=== PATIENT | female | born 1990 | race Caucasian/White ===

== ENCOUNTER 2019-08-20 17:59 | Observation (INO) ==
[2019-08-20] MEDS ORDERED: PROCHLORPERAZINE 1 ML IV ONE ×2 (18:11→21:12)
[2019-08-20] MEDS ORDERED: FAMOTIDINE 20MG IV PUSH 20 MG/5 ML SYR IV STA (18:11)
[2019-08-20] MEDS ORDERED: SODIUM CHLORIDE 0.9% 1000ML 2,000 ML IV SCH (18:15)
--- NOTE | 2019-08-20 18:22 | Emergency Department Note ---
Impression & Plan Acute opioid withdrawal, Syncope, Leukocytosis, Acute dehydration, Fever, Abnormal EKG, Hypokalemia, Ketonuria ED Provider Note NAME: AIMEE [id number] KATILN AGE: 29 SEX: F ARRIVES VIA: Ambulance INFORMANT: Patient, ED PROVIDER(S): Shree Guerra MD CHIEF COMPLAINT: Seizure like activity PLAN: Disposition: Admit MEDICAL DECISION MAKING: The patient is a 29-year-old woman with a past medical history of heroin abuse who presents emergency department from [facility] after having a seizure-like episode when she was in the shower and it was reported that she had spasms of her hands and rigidity in her extremities decreased consciousness but no loss of consciousness given 1 mg of IM Ativan and subsequently transferred to the emergency department. There is no known history of prior seizure history. The patient was being managed for opioid withdrawal with clonidine at the senior care in the setting of being arrested and brought there yesterday. On arrival the patient is sedated after receiving Ativan there is no seizure activity. She follows simple commands. She was incontinent of urine and stool with diarrhea. She did abruptly vomit in the emergency department on arrival. She is afebrile with stable vital signs. Reflexes are within normal limits. There is no clonus. Abdomen is benign. Lungs are clear. Extremities without evidence of infection or abscess. Patient's initial EKG demonstrates significant ST and T wave abnormalities without overt ST elevation. Her QTC is prolonged at 571. Chest x-ray negative for acute process. CT head negative for ICH or acute process otherwise. WBC 19.6K without bandemia likely representing a component of hemoconcentration given H/H 18.0/50.0 which is increased from 13.8/40.5 on June 23, 2019. Platelets within normal limits. Chemistry without metabolic acidosis. BUN 21 consistent with the patient's clinically dry appearance. Potassium 3.2 with repletion provided. Calcium 10.6 also consistent with the patient's clinically dry appearance. LFTs unremarkable. Lipase within normal limits. Troponin negative/undetectable. hCG negative. UA with 3+ ketones again consistent with the patient's clinically dry appearance and evidence of hemoconcentration. No evidence of urinary infection. Drug screen is positive for opiates and marijuana. Otherwise negative for salicylates or acetaminophen. Blood EtOH negative. Given the patient's constellation of symptoms including abdominal cramping and diarrhea with nausea and vomiting, certainly is consistent with opioid withdrawal, with associated dehydration leading to syncopal episode with possible myoclonic component given staff's concern for possible seizure-like activity. Patient did exhibit improvement in her mental status during her ED observation and did answer simple questions and denied any recent antibiotics and reports her diarrhea did begin during this recent period where she was incarcerated. Second and third repeat EKGs showed progressive improvement of ST abnormalities with residual T wave inversions anteriorly. Suspect EKG changes likely related to component of her dehydration and hypoka lemia.. Plan was initially to continue with her IV fluid hydration (2L NSS and 1L LR) and electrolyte repletion to reassess for appropriateness for discharge back to her facility with close monitoring for opioid withdrawal. Subsequently the patient did develop a fever 38.1 and so given the patient's laboratory abnormalities including leukocytosis reasonable to admit for further management for possible sepsis, though thought to be less likely. Suspect Opiod withdrawal most likely precipitating etiology. Blood cultures pending. Vancomycin/Zosyn ordered empirically. There has been report of COVID-19 cases at the patient's facility COVID-19 PCR was ordered. The patient does not have meningismus so will defer lumbar puncture at this time. Case was discussed with Dr. Coffey, [facility] hospitalist, who will evaluate the patient for admission. Triage Nursing notes reviewed and agree them. Additional history obtained from EMS Prior medical records reviewed Vital Signs: reviewed and remarkable for no significant abnormalities Differential diagnosis: Overdose, toxicologic, infection, hypoglycemia, electrolyte abnormalities, cardiac sources, intracerebral event, neurologic, trauma, as well as other pathologies. ER treatment provided: See below. Diagnostics interpreted by me: ECG #1: Normal sinus rhythm with sinus arrhythmia, 85 bpm, ST and T wave abnormality. No ectopy. QTc 571, QRS 86, no overt ST elevation. ECG #2: Normal sinus rhythm, 84 bpm, normal axis, no ectopy, ST and T wave abnormalities less pronounced, QTC improved to 439, QRS 76. ECG #3: Normal sinus rhythm, 80 bpm, no ectopy, further improved ST abnormalities with residual T wave inversions anteriorly, no overt ST elevation. qtc 438, Qrs 78 Cardiac Monitoring: An order for continuous cardiac monitoring was placed and demonstrated Normal sinus rhythm with sinus arrhythmia, 85 bpm, No ectopy. Laboratory studies: See below Imaging studies: XR chest 1V portable CLINICAL HISTORY: syncope dyspnea COMPARISON STUDY: No previous studies for comparison. FINDINGS: The bones soft tissues and hemidiaphragms are normal. The cardiomedia stinal silhouette is normal. The lungs are clear. The pulmonary vasculature is normal. IMPRESSION: Negative chest. -- CT head/brain wo con CT DOSE: 691.05 mGy.cm HISTORY: Mental status change syncope, poss seizure TECHNIQUE: Multiaxial CT images of the head were performed without the use of i ntravenous contrast. A dose lowering technique was utilized adhering to the principles of ALARA. Comparison: None. Findings: The paranasal sinuses and mastoid air cells are clear. The calvarium and skull base are intact. The ventricles and sulci are within normal limits. There is no mass, hematoma, midline shift, or acute infarct. Impression: No acute intracranial abnormality. Consultation(s): Case was discussed with Dr. Coffey, [facility] hospitalist, who will evaluate the patient for admission. HPI: The patient is a 29-year-old woman with a past medical history of heroin abuse who presents emergency department from [facility] after having a seizure-like episode when she was in the shower and it was reported that she had spasms of her hands and rigidity in her extremities decreased consciousness but no loss of consciousness given 1 mg of IM Ativan and subsequently transferred to the emergency department. There is no known history of prior seizure history. The patient was being managed for opioid withdrawal with clonidine at the senior care in the setting of being arrested and brought there yesterday. On arrival the pa tient is sedated after receiving Ativan there is no seizure activity. She follows simple commands. She was incontinent of urine and stool with diarrhea. She did abruptly vomit in the emergency department on arrival. Patient denies any preceding cough congestion, nausea, vomiting or diarrhea prior to her heroin use yesterday and her incarceration. ROS: See above HPI for pertinent positives & negatives. A total of 10 systems reviewed and were otherwise negative. PAST MEDICAL HISTORY:See Below PAST SURGICAL HISTORY:See Below FAMILY HISTORY:See Below SOCIAL HISTORY:See Below HOME MEDICATIONS:See Below ALLERGIES:See Below VITALS:See Below PHYSICAL EXAMINATION: GENERAL: Awake, alert, Drowsy/fatigued-appearing, in no distress HENT: Normocephalic, atraumatic. Oropharynx with dry mucous membranes and otherwise unremarkable. EYES: Normal conjunctiva. Sclera non-icteric. EOMI. No nystamgus. PEARRL. Pupils 2-3mm bilaterally, appropriate for light. NECK: Supple. No nuchal rigidity. FROM. No JVD. RESPIRATORY: Clear to auscultation. CARDIAC: Regular rate, normal rhythm. No murmurs. Extremities warm and well perfused. Pulses equal. ABDOMEN: Soft, non-distended. No tenderness to palpation. No rebound or guarding. No masses. RECTAL: Deferred. MUSCULOSKELETAL: Chest examination reveals no tenderness. The back is symmetrical on inspection without obvious abnormality. There is no CVA tenderness to palpation. No joint edema. LOWER EXTREMITIES: Calves are equal size bilaterally and non-tender. No edema. No discoloration. NEURO: Normal sensorium. No sensory or motor deficits noted. DTRs within normal limits. No clonus. SKIN: No rash or jaundice noted. Extremities are unremarkable with no areas of erythema, induration, or fluctuance to suggest abscess. No splinter hemorrhages or osler nodes noted. ED COURSE: Critical Care: I have personally spent greater than 135 minutes of critical care time in the direct management of this patient. This includes bedside care, interpretation of diagnostic studies, and testing, discussion with consultants, patient, and family members, and other required patient management activities. This 135 minutes is in excess of all separately billable procedures. Shree Guerra MD Past Med/Surg History Medical History (Updated 08/21/19 @ 01:45 by Shree Guerra MD) IV drug abuse Opioid abuse Surgical History No pertinent past surgical history Family History Other No pertinent family history in first degree relatives Social History Preferred Language: Liberian Communication Ability: Effective Buckler And Lacer Required: No Beliefs That Will Affect Care: None Current Living Situation: Other Current Living Situation Comment: [facility] Other Information That Helps Us Care for You: No Feels Safe at Home: Yes Safety Concerns: Feels Safe At This Time Smoking Status: Current every day smoker Tobacco Type: cigarettes ; Do You Dip or Chew Tobacco: No ; Second Hand Exposure: No ; Tobacco Cessation Education Requested by Patient: No Hx Alcohol Use: No Hx Substance Use: Yes substance use type: marijuana and heroin Last Used Substance: Hours (ago) Last Used Substance Other:: 12 hrs ago Allergies Allergies Allergy/AdvReac Type Severity Reaction Status Date / Time No Known Allergies Allergy Verified 08/20/19 18:52 Home Meds Home Medications Medication Instructions Recorded Confirmed bismuth subsalicylate 524 mg PO BID PRN 08/20/19 08/20/19 [Pepto-Bismol] clonazepam 0.5 mg PO BID 08/20/19 08/20/19 clonazepam 0.5 mg PO HS 08/20/19 08/20/19 clonazepam 1 mg PO BID 08/20/19 08/20/19 clonidine HCl 0.1 mg PO TID 08/20/19 08/20/19 ondansetron HCl [Zofran] 4 mg PO TID PRN 08/20/19 08/20/19 gabapentin 300 mg PO TID 08/21/19 08/21/19 mirtazapine 15 mg PO HS 08/21/19 08/21/19 quetiapine 50 mg PO DAILY 08/21/19 08/21/19 Results & Data (ED) Vital Signs Vital Signs - 24 hr 08/20/19 18:11 08/20/19 19:38 08/20/19 21:10 Temperature 36.2 C L Temperature Source Oral Pulse Rate 85 Pulse Rate [Right Finger] 77 77 Pulse Rhythm [Right Finger] Respiratory Rate 10 L 14 14 Respiratory Effort / Characteristics Respiratory Depth Blood Pressure 120/78 Blood Pressure [Left Arm] 106/78 116/78 Blood Pressure Mean 92 Blood Pressure Mean [Left Arm] 87 90 Blood Pressure Position Lying Pulse Oximetry 100 99 96 Oxygen Delivery Method Room Air Sepsis Recent Fever Within 48 Hours No Sepsis New/Unexplained Change in Mental Status No Sepsis Action Taken by Nursing No Action Required 08/20/19 22:34 08/20/19 23:22 08/20/19 23:25 Temperature 38 C H Temperature Source Oral Pulse Rate Pulse Rate [Right Finger] 75 88 73 Pulse Rhythm [Right Finger] Regular Respiratory Rate 22 14 18 Respiratory Effort / Characteristics Non-Labored Spontaneous Non-Labored Respiratory Depth Normal Normal Blood Pressure Blood Pressure [Left Arm] 99/66 L 147/85 H 120/71 Blood Pressure Mean Blood Pressure Mean [Left Arm] 77 105 87 Blood Pressure Position Pulse Oximetry 96 98 100 Oxygen Delivery Method Room Air Room Air Sepsis Recent Fever Within 48 Hours Sepsis New/Unexplained Change in Mental Status Sepsis Action Taken by Nursing Laboratory Data Attestation: I reviewed the patient's lab results. Result diagrams: 08/21/19 08:20 08/21/19 08:20 Lab Results 08/20/19 08/20/19 08/20/19 Range/Units 18:46 18:46 18:46 WBC (4.8-10.8) K/uL RBC (4.2-5.4) M/uL Hgb (12.0-16.0) g/dL Hct (37-47) % MCV (80-100) fL MCH (25-34) pg MCHC (32-36) g/dL RDW Std Deviation (36.4-46.3) fL RDW Coeff of Pati (11.5-14.5) % Plt Count (130-400) K/uL MPV (7.4-10.4) fL Immature Gran % (Auto) % Neut % (Auto) % Lymph % (Auto) % Owen % (Auto) % Eos % (Auto) % Baso % (Auto) % Immature Gran # (Auto) (0.00-0.02) K/uL Neut # (Auto) (1.4-6.5) K/uL Lymph # (Auto) (1.2-3.4) K/uL Owen # (Auto) (0.11-0.59) K/uL Eos # (Auto) (0-0.5) K/uL Baso # (Auto) (0-0.2) K/uL PT 11.5 (9.0-12.0) Seconds INR 1.1 (0.9-1.1) Sodium 138 (136-145) mmol/L Potassium 3.2 L (3.5-5.1) mmol/L Chloride 101 (98-107) mmol/L Carbon Dioxide 25 (21-32) mmol/L Anion Gap 12.0 H (3-11) BUN 21 H (7-18) mg/dl Creatinine 1.14 (0.6-1.2) mg/dl Est Cr Clr Drug Dosing 66.7 ml/min Est GFR ( Amer) 76.3 Est GFR (Non-Af Amer) 65.8 BUN/Creatinine Ratio 18.2 (10-20) Glucose 126 H (70-99) mg/dl Lactate (0.4-2.0) mmol/L Calcium 10.6 H (8.5-10.1) mg/dl Phosphorus (2.5-4.9) mg/dl Magnesium 2.3 (1.8-2.4) mg/dl Total Bilirubin 0.8 (0.2-1) mg/dl AST 20 (15-37) U/L ALT 26 (12-78) U/L Alkaline Phosphatase 100 (45-117) U/L Troponin I (0-0.045) ng/ml Total Protein 9.8 H (6.4-8.2) gm/dl Albumin 5.0 (3.4-5.0) gm/dl Globulin 4.8 H (2.5-4.0) gm/dl Albumin/Globulin Ratio 1.0 (0.9-2) Lipase 213 (73-393) U/L HCG, Qual (Negative) Urine Color Urine Appearance (Clear) Urine pH (4.5-7.5) Ur Specific [place] (1.000-1.030) Urine Protein (Negative) Urine Glucose (UA) (Negative) Urine Ketones (Negative) Urine Blood (Negative) Urine Nitrite (Negative) Urine Bilirubin (Negative) Urine Urobilinogen (Negative) Ur Leukocyte Esterase (Negative) Urine WBC (Auto) (0-5) /hpf Urine RBC (Auto) (0-4) /hpf U Hyaline Cast (Auto) (0-5) /lpf U Epithel Cells (Auto) (0-5) /lpf Urine Bacteria (Auto) (Negative) Salicylates < 1.7 L (2.8-20) mg/dl Urine Opiates Screen (Neg) Ur Methadone, Qual (Neg) Acetaminophen < 2 L (10-30) ug/ml Urine Barbiturates (Neg) Ur Phencyclidine (PCP) (Neg) U Amphetamin/Meth Scrn (Neg) MDMA (Ecstasy) Screen (Neg) U Benzodiazepines Scrn (Neg) Ur Cocaine Metabolite (Neg) U Marijuana (THC) Screen (Neg) Ethyl Alcohol mg/dL (0-3) mg/dl COVID-19 PCR (Negative) Influenza Type A (PCR) (Neg) Influenza Type B (PCR) (Neg) SARS-CoV-2 RNA (RT-PCR) 08/20/19 08/20/19 08/20/19 Range/Units 18:46 18:46 18:46 WBC 19.69 H (4.8-10.8) K/uL RBC 5.79 H (4.2-5.4) M/uL Hgb 18.0 H (12.0-16.0) g/dL Hct 50.0 H (37-47) % MCV 86.4 (80-100) fL MCH 31.1 (25-34) pg MCHC 36.0 (32-36) g/dL RDW Std Deviation 40.5 (36.4-46.3) fL RDW Coeff of Pati 12.8 (11.5-14.5) % Plt Count 368 (130-400) K/uL MPV 11.0 H (7.4-10.4) fL Immature Gran % (Auto) 0.2 % Neut % (Auto) 89.4 % Lymph % (Auto) 6.7 % Owen % (Auto) 3.6 % Eos % (Auto) 0.0 % Baso % (Auto) 0.1 % Immature Gran # (Auto) 0.04 H (0.00-0.02) K/uL Neut # (Auto) 17.61 H (1.4-6.5) K/uL Lymph # (Auto) 1.32 (1.2-3.4) K/uL Owen # (Auto) 0.70 H (0.11-0.59) K/uL Eos # (Auto) 0.00 (0-0.5) K/uL Baso # (Auto) 0.02 (0-0.2) K/uL PT (9.0-12.0) Seconds INR (0.9-1.1) Sodium (136-145) mmol/L Potassium (3.5-5.1) mmol/L Chloride (98-107) mmol/L Carbon Dioxide (21-32) mmol/L Anion Gap (3-11) BUN (7-18) mg/dl Creatinine (0.6-1.2) mg/dl Est Cr Clr Drug Dosing ml/min Est GFR ( Amer) Est GFR (Non-Af Amer) BUN/Creatinine Ratio (10-20) Glucose (70-99) mg/dl Lactate (0.4-2.0) mmol/L Calcium (8.5-10.1) mg/dl Phosphorus (2.5-4.9) mg/dl Magnesium (1.8-2.4) mg/dl Total Bilirubin (0.2-1) mg/dl AST (15-37) U/L ALT (12-78) U/L Alkaline Phosphatase (45-117) U/L Troponin I (0-0.045) ng/ml Total Protein (6.4-8.2) gm/dl Albumin (3.4-5.0) gm/dl Globulin (2.5-4.0) gm/dl Albumin/Globulin Ratio (0.9-2) Lipase (73-393) U/L HCG, Qual Negative (Negative) Urine Color Urine Appearance (Clear) Urine pH (4.5-7.5) Ur Specific [place] (1.000-1.030) Urine Protein (Negative) Urine Glucose (UA) (Negative) Urine Ketones (Negative) Urine Blood (Negative) Urine Nitrite (Negative) Urine Bilirubin (Negative) Urine Urobilinogen (Negative) Ur Leukocyte Esterase (Negative) Urine WBC (Auto) (0-5) /hpf Urine RBC (Auto) (0-4) /hpf U Hyaline Cast (Auto) (0-5) /lpf U Epithel Cells (Auto) (0-5) /lpf Urine Bacteria (Auto) (Negative) Salicylates (2.8-20) mg/dl Urine Opiates Screen (Neg) Ur Methadone, Qual (Neg) Acetaminophen (10-30) ug/ml Urine Barbiturates (Neg) Ur Phencyclidine (PCP) (Neg) U Amphetamin/Meth Scrn (Neg) MDMA (Ecstasy) Screen (Neg) U Benzodiazepines Scrn (Neg) Ur Cocaine Metabolite (Neg) U Marijuana (THC) Screen (Neg) Ethyl Alcohol mg/dL < 3.0 (0-3) mg/dl COVID-19 PCR (Negative) Influenza Type A (PCR) (Neg) Influenza Type B (PCR) (Neg) SARS-CoV-2 RNA (RT-PCR) 08/20/19 08/20/19 08/20/19 Range/Units 18:46 21:59 21:59 WBC (4.8-10.8) K/uL RBC (4.2-5.4) M/uL Hgb (12.0-16.0) g/dL Hct (37-47) % MCV (80-100) fL MCH (25-34) pg MCHC (32-36) g/dL RDW Std Deviation (36.4-46.3) fL RDW Coeff of Pati (11.5-14.5) % Plt Count (130-400) K/uL MPV (7.4-10.4) fL Immature Gran % (Auto) % Neut % (Auto) % Lymph % (Auto) % Owen % (Auto) % Eos % (Auto) % Baso % (Auto) % Immature Gran # (Auto) (0.00-0.02) K/uL Neut # (Auto) (1.4-6.5) K/uL Lymph # (Auto) (1.2-3.4) K/uL Owen # (Auto) (0.11-0.59) K/uL Eos # (Auto) (0-0.5) K/uL Baso # (Auto) (0-0.2) K/uL PT (9.0-12.0) Seconds INR (0.9-1.1) Sodium (136-145) mmol/L Potassium (3.5-5.1) mmol/L Chloride (98-107) mmol/L Carbon Dioxide (21-32) mmol/L Anion Gap (3-11) BUN (7-18) mg/dl Creatinine (0.6-1.2) mg/dl Est Cr Clr Drug Dosing ml/min Est GFR ( Amer) Est GFR (Non-Af Amer) BUN/Creatinine Ratio (10-20) Glucose (70-99) mg/dl Lactate (0.4-2.0) mmol/L Calcium (8.5-10.1) mg/dl Phosphorus 3.9 (2.5-4.9) mg/dl Magnesium (1.8-2.4) mg/dl Total Bilirubin (0.2-1) mg/dl AST (15-37) U/L ALT (12-78) U/L Alkaline Phosphatase (45-117) U/L Troponin I (0-0.045) ng/ml Total Protein (6.4-8.2) gm/dl Albumin (3.4-5.0) gm/dl Globulin (2.5-4.0) gm/dl Albumin/Globulin Ratio (0.9-2) Lipase (73-393) U/L HCG, Qual (Negative) Urine Color Dark Yellow Urine Appearance Clear (Clear) Urine pH 7.0 (4.5-7.5) Ur Specific [place] 1.031 H (1.000-1.030) Urine Protein Trace H (Negative) Urine Glucose (UA) Negative (Negative) Urine Ketones 3+ H (Negative) Urine Blood Negative (Negative) Urine Nitrite Negative (Negative) Urine Bilirubin Negative (Negative) Urine Urobilinogen Negative (Negative) Ur Leukocyte Esterase Trace H (Negative) Urine WBC (Auto) 1-5 (0-5) /hpf Urine RBC (Auto) 0-4 (0-4) /hpf U Hyaline Cast (Auto) 1-5 (0-5) /lpf U Epithel Cells (Auto) 5-10 H (0-5) /lpf Urine Bacteria (Auto) Negative (Negative) Salicylates (2.8-20) mg/dl Urine Opiates Screen Pos H (Neg) Ur Methadone, Qual Neg (Neg) Acetaminophen (10-30) ug/ml Urine Barbiturates Neg (Neg) Ur Phencyclidine (PCP) Neg (Neg) U Amphetamin/Meth Scrn Neg (Neg) MDMA (Ecstasy) Screen Neg (Neg) U Benzodiazepines Scrn Neg (Neg) Ur Cocaine Metabolite Neg (Neg) U Marijuana (THC) Screen Pos H (Neg) Ethyl Alcohol mg/dL (0-3) mg/dl COVID-19 PCR (Negative) Influenza Type A (PCR) (Neg) Influenza Type B (PCR) (Neg) SARS-CoV-2 RNA (RT-PCR) 08/20/19 08/20/19 08/20/19 Range/Units 22:49 23:00 23:35 WBC (4.8-10.8) K/uL RBC (4.2-5.4) M/uL Hgb (12.0-16.0) g/dL Hct (37-47) % MCV (80-100) fL MCH (25-34) pg MCHC (32-36) g/dL RDW Std Deviation (36.4-46.3) fL RDW Coeff of Pati (11.5-14.5) % Plt Count (130-400) K/uL MPV (7.4-10.4) fL Immature Gran % (Auto) % Neut % (Auto) % Lymph % (Auto) % Owen % (Auto) % Eos % (Auto) % Baso % (Auto) % Immature Gran # (Auto) (0.00-0.02) K/uL Neut # (Auto) (1.4-6.5) K/uL Lymph # (Auto) (1.2-3.4) K/uL Owen # (Auto) (0.11-0.59) K/uL Eos # (Auto) (0-0.5) K/uL Baso # (Auto) (0-0.2) K/uL PT (9.0-12.0) Seconds INR (0.9-1.1) Sodium (136-145) mmol/L Potassium (3.5-5.1) mmol/L Chloride (98-107) mmol/L Carbon Dioxide (21-32) mmol/L Anion Gap (3-11) BUN (7-18) mg/dl Creatinine (0.6-1.2) mg/dl Est Cr Clr Drug Dosing ml/min Est GFR ( Amer) Est GFR (Non-Af Amer) BUN/Creatinine Ratio (10-20) Glucose (70-99) mg/dl Lactate 2.0 (0.4-2.0) mmol/L Calcium (8.5-10.1) mg/dl Phosphorus (2.5-4.9) mg/dl Magnesium (1.8-2.4) mg/dl Total Bilirubin (0.2-1) mg/dl AST (15-37) U/L ALT (12-78) U/L Alkaline Phosphatase (45-117) U/L Troponin I < 0.015 (0-0.045) ng/ml Total Protein (6.4-8.2) gm/dl Albumin (3.4-5.0) gm/dl Globulin (2.5-4.0) gm/dl Albumin/Globulin Ratio (0.9-2) Lipase (73-393) U/L HCG, Qual (Negative) Urine Color Urine Appearance (Clear) Urine pH (4.5-7.5) Ur Specific [place] (1.000-1.030) Urine Protein (Negative) Urine Glucose (UA) (Negative) Urine Ketones (Negative) Urine Blood (Negative) Urine Nitrite (Negative) Urine Bilirubin (Negative) Urine Urobilinogen (Negative) Ur Leukocyte Esterase (Negative) Urine WBC (Auto) (0-5) /hpf Urine RBC (Auto) (0-4) /hpf U Hyaline Cast (Auto) (0-5) /lpf U Epithel Cells (Auto) (0-5) /lpf Urine Bacteria (Auto) (Negative) Salicylates (2.8-20) mg/dl Urine Opiates Screen (Neg) Ur Methadone, Qual (Neg) Acetaminophen (10-30) ug/ml Urine Barbiturates (Neg) Ur Phencyclidine (PCP) (Neg) U Amphetamin/Meth Scrn (Neg) MDMA (Ecstasy) Screen (Neg) U Benzodiazepines Scrn (Neg) Ur Cocaine Metabolite (Neg) U Marijuana (THC) Screen (Neg) Ethyl Alcohol mg/dL (0-3) mg/dl COVID-19 PCR (Negative) Influenza Type A (PCR) Neg for Influ A (Neg) Influenza Type B (PCR) Neg for Influ B (Neg) SARS-CoV-2 RNA (RT-PCR) 08/20/19 08/20/19 Range/Units 23:35 23:50 WBC (4.8-10.8) K/uL RBC (4.2-5.4) M/uL Hgb (12.0-16.0) g/dL Hct (37-47) % MCV (80-100) fL MCH (25-34) pg MCHC (32-36) g/dL RDW Std Deviation (36.4-46.3) fL RDW Coeff of Pati (11.5-14.5) % Plt Count (130-400) K/uL MPV (7.4-10.4) fL Immature Gran % (Auto) % Neut % (Auto) % Lymph % (Auto) % Owen % (Auto) % Eos % (Auto) % Baso % (Auto) % Immature Gran # (Auto) (0.00-0.02) K/uL Neut # (Auto) (1.4-6.5) K/uL Lymph # (Auto) (1.2-3.4) K/uL Owen # (Auto) (0.11-0.59) K/uL Eos # (Auto) (0-0.5) K/uL Baso # (Auto) (0-0.2) K/uL PT (9.0-12.0) Seconds INR (0.9-1.1) Sodium (136-145) mmol/L Potassium (3.5-5.1) mmol/L Chloride (98-107) mmol/L Carbon Dioxide (21-32) mmol/L Anion Gap (3-11) BUN (7-18) mg/dl Creatinine (0.6-1.2) mg/dl Est Cr Clr Drug Dosing ml/min Est GFR ( Amer) Est GFR (Non-Af Amer) BUN/Creatinine Ratio (10-20) Glucose (70-99) mg/dl Lactate (0.4-2.0) mmol/L Calcium (8.5-10.1) mg/dl Phosphorus (2.5-4.9) mg/dl Magnesium (1.8-2.4) mg/dl Total Bilirubin (0.2-1) mg/dl AST (15-37) U/L ALT (12-78) U/L Alkaline Phosphatase (45-117) U/L Troponin I (0-0.045) ng/ml Total Protein (6.4-8.2) gm/dl Albumin (3.4-5.0) gm/dl Globulin (2.5-4.0) gm/dl Albumin/Globulin Ratio (0.9-2) Lipase (73-393) U/L HCG, Qual (Negative) Urine Color Urine Appearance (Clear) Urine pH (4.5-7.5) Ur Specific [place] (1.000-1.030) Urine Protein (Negative) Urine Glucose (UA) (Negative) Urine Ketones (Negative) Urine Blood (Negative) Urine Nitrite (Negative) Urine Bilirubin (Negative) Urine Urobilinogen (Negative) Ur Leukocyte Esterase (Negative) Urine WBC (Auto) (0-5) /hpf Urine RBC (Auto) (0-4) /hpf U Hyaline Cast (Auto) (0-5) /lpf U Epithel Cells (Auto) (0-5) /lpf Urine Bacteria (Auto) (Negative) Salicylates (2.8-20) mg/dl Urine Opiates Screen (Neg) Ur Methadone, Qual (Neg) Acetaminophen (10-30) ug/ml Urine Barbiturates (Neg) Ur Phencyclidine (PCP) (Neg) U Amphetamin/Meth Scrn (Neg) MDMA (Ecstasy) Screen (Neg) U Benzodiazepines Scrn (Neg) Ur Cocaine Metabolite (Neg) U Marijuana (THC) Screen (Neg) Ethyl Alcohol mg/dL (0-3) mg/dl COVID-19 PCR NEGATIVE (Negative) Influenza Type A (PCR) (Neg) Influenza Type B (PCR) (Neg) SARS-CoV-2 RNA (RT-PCR) Cancelled Administered Medications Gabapentin (Neurontin) 100 mg PO TID [facility] Stop: 09/20/19 08:59 Last Admin: 08/21/19 14:37 Dose: 100 mg Documented by: [id number] Admin: 08/21/19 08:37 Dose: 100 mg Documented by: [id number] Lorazepam (Ativan) 1 mg in 2 mls @ 2 mls/min IV Q4H PRN PRN Reason: Anxiety/Agitation Stop: 09/20/19 03:12 Last Admin: 08/21/19 08:17 Dose: 2 mls/min Documented by: [id number] Admin: 08/21/19 03:54 Dose: 2 mls/min Documented by: [id number] Potassium Chloride/Sodium Chloride (Normal Saline W/20 Meq Kcl) 20 meq in 1,000 mls @ 125 mls/hr IV .Q8H [facility] Stop: 09/20/19 09:29 Last Admin: 08/21/19 10:01 Dose: 125 mls/hr Documented by: [id number] Piperacillin Sod/Tazobactam (Sod 3.375 gm/ Dextrose) 115 mls @ 28.75 mls/hr IV Q8H [facility]; Protocol Stop: 08/23/19 11:59 Last Admin: 08/21/19 12:03 Dose: 28.8 mls/hr Documented by: [id number] Discontinued Medications Clonazepam (Klonopin) 1 mg PO BID [facility] Stop: 09/20/19 08:59 Last Admin: 08/21/19 08:18 Dose: 1 mg Documented by: [id number] Clonidine HCl (Catapres) 0.1 mg PO TID [place] Stop: 09/20/19 08:59 Last Admin: 08/21/19 08:37 Dose: 0.1 mg Documented by: [id number] Gabapentin (Neurontin) 100 mg PO NOW STA Stop: 08/21/19 02:00 Last Admin: 08/21/19 04:58 Dose: 100 mg Documented by: [id number] Sodium Chloride (Nss 1000ml) 2,000 mls @ 999 mls/hr IV .Q2H1M [place] Stop: 08/20/19 20:15 Last Infusion: 08/21/19 00:03 Dose: 0 mls/hr Documented by: [id number] Admin: 08/20/19 18:39 Dose: 999 mls/hr Documented by: [id number] Prochlorperazine (Compazine) 1 mls @ 1 mls/min IV ONE ONE Stop: 08/20/19 18:12 Last Admin: 08/20/19 19:02 Dose: 1 mls/min Documented by: [id number] Famotidine (Pepcid 20mg Iv Push) 20 mg in 5 mls @ 2.5 mls/min IV NOW STA Stop: 08/20/19 18:12 Last Admin: 08/20/19 19:02 Dose: 2.5 mls/min Documented by: [id number] Lactated Ringer's (Lr) 1,000 mls @ 999 mls/hr IV .Q1H1M ONE Stop: 08/20/19 20:35 Last Infusion: 08/20/19 21:11 Dose: 0 mls/hr Documented by: [id number] Admin: 08/20/19 19:49 Dose: 999 mls/hr Documented by: [id number] Potassium Chloride (K Michael / Wtr) 10 meq in 100 mls @ 100 mls/hr IV Q1H [place] Stop: 08/20/19 21:44 Last Infusion: 08/20/19 22:24 Dose: 0 mls/hr Documented by: [id number] Admin: 08/20/19 21:00 Dose: 100 mls/hr Documented by: [id number] Infusion: 08/20/19 20:49 Dose: 100 mls/hr Documented by: [id number] Admin: 08/20/19 19:49 Dose: 100 mls/hr Documented by: [id number] Prochlorperazine (Compazine) 1 mls @ 1 mls/min IV ONE ONE Stop: 08/20/19 21:13 Last Admin: 08/20/19 21:30 Dose: 1 mls/min Documented by: [id number] Piperacillin Sod/Tazobactam Sod (Zosyn) 4.5 gm in 120 mls @ 240 mls/hr IV NOW ONE Stop: 08/21/19 00:19 Last Infusion: 08/21/19 01:23 Dose: 0 mls/hr Documented by: [id number] Admin: 08/21/19 00:53 Dose: 240 mls/hr Documented by: [id number] Vancomycin HCl 1,250 mg/ (Sodium Chloride) 525 mls @ 200 mls/hr IV NOW ONE Stop: 08/21/19 02:27 Last Infusion: 08/21/19 06:45 Dose: 0 mls/hr Documented by: [id number] Admin: 08/21/19 00:53 Dose: 200 mls/hr Documented by: [id number] Acetaminophen (Ofirmev) 1,000 mg in 100 mls @ 400 mls/hr IV NOW STA Stop: 08/21/19 00:31 Last Infusion: 08/21/19 01:23 Dose: 0 mls/hr Documented by: [id number] Admin: 08/21/19 00:53 Dose: 400 mls/hr Documented by: [id number] Promethazine HCl (Phenergan) 25 mg in 51 mls @ 204 mls/hr IV NOW STA Stop: 08/21/19 00:31 Last Infusion: 08/21/19 01:22 Dose: 0 mls/hr Documented by: [id number] Admin: 08/21/19 00:53 Dose: 204 mls/hr Documented by: [id number] Sodium Chloride (Nss 1000ml) 1,000 mls @ 125 mls/hr IV .Q8H [place] Stop: 09/20/19 03:12 Last Infusion: 08/21/19 10:02 Dose: 0 mls/hr Documented by: [id number] Admin: 08/21/19 03:54 Dose: 125 mls/hr Documented by: [id number] Piperacillin Sod/Tazobactam (Sod 3.375 gm/ Dextrose) 115 mls @ 28.75 mls/hr IV Q8H [place]; Protocol Stop: 08/23/19 05:59 Last Infusion: 08/21/19 08:57 Dose: 0 mls/hr Documented by: [id number] Admin: 08/21/19 04:57 Dose: 28.8 mls/hr Documented by: [id number] Promethazine HCl 12.5 mg/ (Sodium Chloride) 50.5 mls @ 202 mls/hr IV Q6H PRN PRN Reason: Nausea And Vomiting Stop: 09/20/19 05:17 Last Infusion: 08/21/19 05:45 Dose: 0 mls/hr Documented by: [id number] Admin: 08/21/19 05:30 Dose: 202 mls/hr Documented by: [id number] Ondansetron HCl 6 mg/ Dextrose 53 mls @ 200 mls/hr IV ONE STA Stop: 08/21/19 09:36 Last Infusion: 08/21/19 10:17 Dose: 0 mls/hr Documented by: [id number] Admin: 08/21/19 10:01 Dose: 200 mls/hr Documented by: [id number] Multivitamins 10 ml/ Thiamine HCl 100 mg/ Folic Acid 1 mg/Sodium Chloride 1,011.2 mls @ 500 mls/hr IV .Q2H2M ONE Stop: 08/21/19 14:01 Last Admin: 08/21/19 12:29 Dose: 500 mls/hr Documented by: [id number] Potassium Chloride (Klor-Con M20) 40 meq PO NOW STA Stop: 08/20/19 20:59 Last Admin: 08/21/19 01:22 Dose: 40 meq Documented by: [id number] Potassium Chloride (Klor-Con M10) Confirm Administered Dose 40 meq PO .STK-MED ONE Stop: 08/21/19 01:11 Last Admin: 08/21/19 04:02 Dose: Not Given Documented by: [id number] Potassium Chloride (Klor-Con M20) 40 meq PO NOW STA Stop: 08/21/19 09:25 Last Admin: 08/21/19 10:01 Dose: 40 meq Documented by: [id number] Blood Pressure Blood Pressure Findings: Normal blood pressure Discharge Plan Visit Data *Final* Discharge Date/Time: 08/21/19 02:33 Chief Complaint: Seizure Stated Complaint: SEIZURE ED Provider: Shree Guerra Discharge Problem: Acute opioid withdrawal, Syncope, Leukocytosis, Acute dehydration, Fever, Abnormal EKG, Hypokalemia, Ketonuria Patient Disposition: Admitted As Inpatient Discharge Instructions Interventions: ED Discharge Assessment Last Done: 08/21/19 02:33 Discharge Problem: Syncope Qualifiers: Syncope type: unspecified Qualified Code(s): R55 - Syncope and collapse Leukocytosis Qualifiers: Leukocytosis type: unspecified Qualified Code(s): D72.829 - Elevated white blood cell count, unspecified Fever Qualifiers: Fever type: unspecified Qualified Code(s): R50.9 - Fever, unspecified
[2019-08-20 19:11] LABS: Basophils # (auto) 0.02 K/uL (0-0.2); Basophils % (auto) 0.1 %; Immature Granulocytes # (auto) 0.04 K/uL (0.00-0.02); Immature Granulocytes % (auto) 0.2 %; Lymphocytes # (auto) 1.32 K/uL (1.2-3.4); Lymphocytes % (auto) 6.7 %; Mean Corpuscular Hemoglobin 31.1 pg (25-34); Mean Corpuscular Volume 86.4 fL (80-100); Monocytes % (auto) 3.6 %; Neutrophils # (auto) 17.61 K/uL (1.4-6.5); Neutrophils % (auto) 89.4 %; Platelet Count 368 K/uL (130-400); RDW Coefficient of Variation 12.8 % (11.5-14.5); RDW Standard Deviation 40.5 fL (36.4-46.3); Red Blood Count 5.79 M/uL (4.2-5.4); White Blood Count 19.69 K/uL (4.8-10.8)
--- NOTE | 2019-08-20 19:16 | XRay Report ---
XR chest 1V portable CLINICAL HISTORY: syncope dyspnea COMPARISON STUDY: No previous studies for comparison. FINDINGS: The bones soft tissues and hemidiaphragms are normal. The cardiomediastinal silhouette is n ormal. The lungs are clear. The pulmonary vasculature is normal. IMPRESSION: Negative chest. ACT 112: Negative or not required by law. The above report was generated using voice recognition software. It may contain grammatical, syntax or spelling errors. Electronically signed by: Eze Preciado M.D. 08/20/2019 7:15 PM
[2019-08-20 19:21] LABS: INR 1.1 (0.9-1.1); Prothrombin Time 11.5 Seconds (9.0-12.0)
[2019-08-20 19:25] LABS: Pregnancy Test, Serum Negative (Negative)
[2019-08-20 19:28] LABS: BUN Creatinine Ratio 18.2 (10-20); Calcium 10.6 mg/dl (8.5-10.1); Creatinine Clr Calc Pharmacy 66.7 ml/min; Est GFR (African American) 76.3; Est GFR (Non-African American) 65.8; Magnesium 2.3 mg/dl (1.8-2.4); Potassium 3.2 mmol/L (3.5-5.1)
--- NOTE | 2019-08-20 19:29 | CT Scan Report ---
CT head/brain wo con CT DOSE: 691.05 mGy.cm HISTORY: Mental status change syncope, poss seizure TECHNIQUE: Multiaxial CT images of the head were performed without the use of intravenous contrast. A dose lowering technique was utilized adhering to the principles of ALARA. Comparison: None. Findings: The paranasal sinuses and mastoid air cells are clear. The calvarium and skull base are int act. The ventricles and sulci are within normal limits. There is no mass, hematoma, midline shift, or acute infarct. Impression: No acute intracranial abnormality. ACT 112: Negative or not required by law. The above report was generated using voice recognition software. It may contain grammatical, syntax or spelling errors. Electronically signed by: Eze Preciado M.D. 08/20/2019 7:28 PM
[2019-08-20 19:31] LABS: Bilirubin,Total 0.8 mg/dl (0.2-1); Globulin 4.8 gm/dl (2.5-4.0); Total Protein 9.8 gm/dl (6.4-8.2)
[2019-08-20] MEDS ORDERED: LACTATED RINGER'S 1,000 ML IV ONE (19:35)
[2019-08-20 19:43] LABS: Acetaminophen < 2 ug/ml (10-30); Salicylate < 1.7 mg/dl (2.8-20)
[2019-08-20] MEDS: POTASSIUM CHLORIDE / WTR 10 MEQ/100 ML PLCT IV SCH ×2 (19:49→21:00)
[2019-08-20] MEDS ORDERED: POTASSIUM CHLORIDE 20 MEQ TABCR PO STA (20:58)
[2019-08-20 22:06] LABS: Appearance Urine Clear (Clear); Bacteria Urine Automated Negative (Negative); Blood Urine Negative (Negative); Color Urine Dark Yellow; Glucose Urine UA Negative (Negative); Ketones Urine 3+ (Negative); Leukocyte Esterase Urine Trace (Negative); Nitrite Urine Negative (Negative); Protein Urine Trace (Negative); RBC Urine Automated 0-4 /hpf (0-4); Specific Gravity Urine 1.031 (1.000-1.030); Urobilinogen Urine Negative (Negative)
[2019-08-20 22:07] LABS: Bilirubin Urine Negative (Negative); Ictotest Urine Negative (Negative)
[2019-08-20 22:27] LABS: Amphetamines+Metham, Urine Neg (Neg); Barbiturates, Urine Neg (Neg); Benzodiazepine, Urine Neg (Neg); Cocaine, Urine Neg (Neg); MDMA (Ecstacy), Urine Neg (Neg); Methadone, Urine Neg (Neg); Opiate, Urine Pos (Neg); Phencyclidine, Urine Neg (Neg)
[2019-08-20] MEDS ORDERED: VANCOMYCIN CONSULT ACTIVE PRN (23:50)
[2019-08-20] MEDS ORDERED: PIPERACILLIN/TAZOBACTAM 4.5 GM/120 ML BAG IV ONE (23:50)
[2019-08-20] MEDS ORDERED: VANCOMYCIN HCL 1,250 MG in SODIUM CHLORIDE 0.9% 500 ML IV ONE (23:50)
[2019-08-20] MEDS ORDERED: PIPERACILL/TAZOBAC CONSULT ACTIVE PRN (23:50)
[2019-08-21] MEDS ORDERED: ACETAMINOPHEN 1,000 MG/100 ML VIAL IV STA (00:17)
[2019-08-21] MEDS ORDERED: PROMETHAZINE 25 MG/51 ML BAG IV STA (00:17)
[2019-08-21 00:41] LABS: Influenza A virus by PCR Neg for Influ A (Neg); Influenza B virus by PCR Neg for Influ B (Neg)
[2019-08-21] MEDS ORDERED: POTASSIUM CHLORIDE 10 MEQ TABCR PO ONE (01:10)
[2019-08-21] MEDS ORDERED: GABAPENTIN 100 MG CAP PO STA (01:59)
[2019-08-21] MEDS ORDERED: NITROGLYCERIN SL 0.4 MG/TAB TAB SL PRN (03:13)
[2019-08-21] MEDS ORDERED: ACETAMINOPHEN 325 MG TAB PO PRN ×2 (03:13→11:28)
[2019-08-21] MEDS ORDERED: SODIUM CHLORIDE 0.9% 1000ML 1,000 ML IV SCH (03:13)
[2019-08-21] MEDS: LORazepam 1 MG/2 ML VIAL IV PRN ×4 (03:54→22:25)
--- NOTE | 2019-08-21 05:15 | History and Physical Report ---
DATE OF ADMISSION: 08/21/2019 CHIEF COMPLAINT: Questionable seizures, heroin withdrawal, fever. HISTORY OF PRESENT ILLNESS: This is a 29-year-old female with no significant past medical history, who [facility] because of questionable seizure-like activity. The [facility] was [facility] and since 08/20/2019 morning she has been sick with, abdominal cramps, nausea, vomiting, several episodes of diarrhea. No history of seizure. As per the ER, when she was in shower she reported that she had spasms and rigidity in her extremities, somewhat decreased consciousness, but no loss of consciousness and 1 mg of IM Ativan was given and subsequently transferred to the Emergency Department. The patient has been managed in the [facility] opioid withdrawal with clonidine. CT head was negative. Here her labs showed leukocytosis of 19 and hemoglobin of 18, which looks like hemoconcentrated from dehydration with potassium of 3.2. Lactate was 2. Urinalysis was positive for trace leukocyte esterase and +3 ketones, possibly dehydration and starvation ketosis. Urine toxicology screen was positive for opiates and marijuana. Chest x-ray was okay. EKG shows prolonged QT of 571 [address] ST-T wave abnormalities. Initial plan was to treat with fluids and send her back to [facility] for [facility] withdrawal, but then later the patient spiked temperature and as the [facility] has few cases of COVID, flu and COVID test was drawn in the ER, but those tests are still pending and there is question of infection and was started on Zosyn and vancomycin and planned to be admitted in the hospital for further monitoring . The patient is somewhat drowsy, but obeys simple commands and answers questions. She is in position. Complains of abdominal cramps and also several episodes of diarrhea. She says she is not feeling good. Denies any cough, no chest pain. Says that she is somewhat short of breath, has some headache. When asked about neck pain, she says she has some neck pain, but she is able to move her neck, though she is drowsy and is somewhat difficult to evaluate at this time, but no obvious meningeal signs noted. She says she was taking IV heroin every day since last 1-1/2 months until [facility] She says she lives alone. Denies any sick contacts. Denies any travel to [facility]. She says she is not feeling good since yesterday. Currently hemodynamically stable, saturating 100% on room air. The patient states she takes Seroquel 100 mg and gabapentin 100 mg t.i.d. and requests for her home medications. ALLERGIES: No known drug allergies. PAST MEDICAL HISTORY: None. PAST SURGICAL HISTORY: None. MEDICATIONS: Gabapentin and Seroquel. FAMILY HISTORY: Significant for grandfather had diabetes, grandmother has cervical cancer. SOCIAL HISTORY: She states she smokes 1/2 pack a day since last 1 year. Denies any alcohol use. Doing IV heroin since last 1-1/2 months. Lives alone. REVIEW OF SYSTEMS: As per HPI. Rest of the review of systems negative. PHYSICAL EXAMINATION: GENERAL: The patient is of moderate built, currently drowsy, not in acute distress. VITAL SIGNS: Temperature 38, pulse 73, respiratory rate 18, blood pressure 120/71, oxygen 100% on room air. HEENT: No pallor, no icterus. Pupils equal, round, and reactive to light. NECK: No JVD, no neck masses. Seems supple. Unable to flex her neck. CARDIOVASCULAR: S1, S2 heard, regular rate and rhythm, no murmur, no gallop. RESPIRATORY SYSTEM: Normal AP diameter. No accessory muscle use. No wheezing or crackles. ABDOMEN: Soft, bowel sounds present. Abdominal discomfort present. No rigidity. No distention. CENTRAL NERVOUS SYSTEM: Drowsy, but alert. Can tell her name, can tell her date of , knows she is in the hospital, knows the year. Moves extremities. Speech is clear. EXTREMITIES: No edema, no erythema. LABORATORY DATA: WBC 19, hemoglobin 18, hematocrit 50, platelets 368. PTT 11.5, INR 1.1. Sodium 138, potassium 3.2, chloride 101, bicarbonate 25, BUN 21, creatinine 1.1, serum glucose 126. Lactate 2, calcium 10.6, phosphorus 3.9, magnesium 2.3, total bilirubin 0.8, AST 20, ALT 26, alkaline phosphatase 100. Troponin I less than 0.015. Urinalysis, +3 ketones, trace leukocyte esterase. Toxicology screen, salicylates less than 1.7, opiate is positive, acetaminophen less than 2 mcg, marijuana positive. Influenza A and B negative. Sars-CoV-2 pending. IMAGING DATA: Chest x-ray, negative chest. CT of the head, no acute intracranial abnormality. EKG: Initial EKG, normal sinus rhythm with sinus arrhythmia at rate of 55. ST-T abnormality, anterolateral ischemia, prolonged QT of 571. Repeat EKG, QT is shortened. Normal sinus rhythm at a rate of 54. ASSESSMENT AND PLAN: This is a 29-year-old female who was [facility] because of question of seizures, and heroin withdrawal and spiked temp in ER. 1. Heroin withdrawal. The patient was [facility] yesterday night. Say she is taking IV heroin for the last 1-1/2 months. She was treated for heroin withdrawal with clonidine at [facility]. Since 08/20/2019 morning, she is sick with nausea, vomiting, diarrhea, and abdominal discomfort, cramping, not feeling good and shortness of breath and she was feeling rigid and decreased consciousness while she was showering and given IM Ativan and brought to ER.. Here, she is drowsy probably from the Ativan and imaging studies were okay. Labs showed elevated white count and elevated hematocrit and hemoglobin. Urine was positive for +3 ketones. Lactate was normal. Thought to be from dehydration and calcium was 10.6, also thought to be from dehydration. Plan was to give IV fluids and discharge back, but then she spiked temperature and the question of considering for COVID as though the patient went to [facility] yesterday itself, there are some few cases of COVID in the [facility]. Flu was checked and it was negative. COVID is pending. Also because of elevated white count, possible dehydration versus infection because of IV drug abuse. We have started her on IV vancomycin and Zosyn, and getting admitted for further monitoring. We will continue with vancomycin and Zosyn. Meningitis unlikely , but if any concern we will do an LP. Follow the culture. C. diff was also drawn in the ER because of diarrhea, which we will follow the results. Most likely her symptoms could be from the heroin withdrawal. We will continue the protocol with clonidine 0.1 t.i.d. and p.r.n., Klonopin and IV Ativan p.r.n. and monitor the QTs. Can use Imodium for diarrhea if C. Diff is negative and if QT is not prolonged. IV fluids. Continue the antibiotics until the cultures are back. 2. Deep venous thrombosis prophylaxis, sequential compression devices. DISPOSITION: Closely monitor in tele floor. Contact precautions, air-borne precautions until the COVID test is back. DISPOSITION: Monitor in the tele floor. Level 1 full code. MTDD
[2019-08-21] MEDS ORDERED: PROMETHAZINE HCL 12.5 MG in SODIUM CHLORIDE 0.9% 50 ML IV PRN (05:18)
[2019-08-21] MEDS ORDERED: PIPERACILLIN/TAZOBACTAM 3.375 GM in DEXTROSE 5% 100 ML IV SCH (06:00)
--- NOTE | 2019-08-21 08:21 | XRay Report ---
KUB HISTORY: Acute generalized abdominal pain with diarrhea opiod withdrawal, abd pain, diarrhea COMPARISON: CT abdomen pelvis 10/28/2012 FINDINGS: No definite bowel obstruction. Air-filled loops of large and small bowel are noted with mil d small bowel distention within the abdominal left upper quadrant measuring up to 3.9 cm. There is no organomegaly. No renal calculi. No ureteral calculi. No pneumoperitoneum or pneumatosis. No fractur e. IMPRESSION: 1. No bowel obstruction or pneumoperitoneum. 2. A single loop of small bowel within the abdominal left upper quadrant is mildly dilated. This may be physiologic or reflect a mild focal ileus. ACT 112: Negative or not required by law. The above report was generated using voice recognition software. It may contain grammatical, syntax o r spelling errors. Electronically signed by: Russel Chen M.D. 08/21/2019 8:19 AM
[2019-08-21 08:35] LABS: Basophils # (auto) 0.01 K/uL (0-0.2); Basophils % (auto) 0.1 %; Hematocrit (blood only) 41.8 % (37-47); Hemoglobin 14.5 g/dL (12.0-16.0); Immature Granulocytes # (auto) 0.03 K/uL (0.00-0.02); Immature Granulocytes % (auto) 0.2 %; Lymphocytes # (auto) 1.86 K/uL (1.2-3.4); Lymphocytes % (auto) 14.5 %; Mean Corpuscular Hemoglobin 30.3 pg (25-34); Mean Corpuscular Hgb Conc 34.7 g/dL (32-36); Mean Corpuscular Volume 87.4 fL (80-100); Mean Platelet Volume 10.4 fL (7.4-10.4); Monocytes # (auto) 0.82 K/uL (0.11-0.59); Monocytes % (auto) 6.4 %; Neutrophils % (auto) 78.8 %; Platelet Count 321 K/uL (130-400); RDW Coefficient of Variation 12.7 % (11.5-14.5); RDW Standard Deviation 41.3 fL (36.4-46.3); Red Blood Count 4.78 M/uL (4.2-5.4); White Blood Count 12.82 K/uL (4.8-10.8)
[2019-08-21] MEDS: GABAPENTIN 100 MG CAP PO SCH ×3 (08:37→21:10)
[2019-08-21] MEDS ORDERED: cloNIDine HCL 0.1 MG TAB PO SCH (09:00)
[2019-08-21] MEDS ORDERED: clonazePAM 1 MG TAB PO SCH (09:00)
[2019-08-21 09:06] LABS: Est GFR (African American) 102.9; Est GFR (Non-African American) 88.8; Potassium 3.1 mmol/L (3.5-5.1)
[2019-08-21 09:07] LABS: BUN Creatinine Ratio 20.2 (10-20); Calcium 8.8 mg/dl (8.5-10.1); Creatinine Clr Calc Pharmacy 75.1 ml/min
--- NOTE | 2019-08-21 09:07 | Hospitalist Progress Note ---
Date of Service August 21, 2019 Assessment & Plan Admission and Anticipated Discharge Date Admission Date: August 21, 2019 Subjective ATTENDING NOTE : pt [facility] with concern for heroine withdrawal coVID 19 test ordered as pt spiked temp in ER , there are several COVID 19 positive cases in the same facility spoke with [facility] lab rapid in house /[facility] testing for SARS-CoV -2 PCR testing is ordered , test result should be available with in a hour cont standard Isolation precaution till COVID 19 testing report is available no evidence of pnemonia in chest xray , afebrile leukocytosis improved with IV hydration will DC Abx -vanco and Zosyn cont IV fluid and supportive care Judith Garcia MD Results & Data Results & Data ([facility]) Vital Signs (Past 12 Hours) Vital Signs Temp Pulse Pulse Pulse Resp BP BP 08/21/19 08:14 37.4 C 69 16 122/69 08/21/19 02:50 37.6 C H 84 18 107/70 08/21/19 02:33 78 14 107/65 08/21/19 02:03 95 H 16 119/63 08/20/19 23:25 38 C H 73 18 120/71 08/20/19 23:22 88 14 147/85 H 08/20/19 22:34 75 22 99/66 L 08/20/19 21:10 77 14 116/78 Pulse Ox 08/21/19 08:14 97 08/21/19 02:50 97 08/21/19 02:33 98 08/21/19 02:03 94 08/20/19 23:25 100 08/20/19 23:22 98 08/20/19 22:34 96 08/20/19 21:10 96
[2019-08-21] MEDS ORDERED: ondansetron HCL 6 MG in DEXTROSE 5% 50 ML IV STA (09:21)
[2019-08-21] MEDS ORDERED: POTASSIUM CHLORIDE 20 MEQ TABCR PO STA (09:24)
[2019-08-21] MEDS ORDERED: NSS + 20MEQ KCL 20 MEQ/1,000 ML BAG IV SCH (09:30)
--- NOTE | 2019-08-21 10:26 | Hospitalist Progress Note ---
Date of Service August 21, 2019 Assessment & Plan Admission and Anticipated Discharge Date Admission Date: August 21, 2019 Subjective rapid inhouse COVID -19 PCR negative contact /isolation precaution discontinued Judith Garcia MD Results & Data Results & Data ([facility]) Vital Signs (Past 12 Hours) Vital Signs Temp Pulse Pulse Pulse Resp BP BP 08/21/19 08:14 37.4 C 69 16 122/69 08/21/19 02:50 37.6 C H 84 18 107/70 08/21/19 02:33 78 14 107/65 08/21/19 02:03 95 H 16 119/63 08/20/19 23:25 38 C H 73 18 120/71 08/20/19 23:22 88 14 147/85 H 08/20/19 22:34 75 22 99/66 L Pulse Ox 08/21/19 08:14 97 08/21/19 02:50 97 08/21/19 02:33 98 08/21/19 02:03 94 08/20/19 23:25 100 08/20/19 23:22 98 08/20/19 22:34 96
[2019-08-21] MEDS ORDERED: PIPERACILL/TAZOBAC CONSULT ACTIVE PRN (11:30)
[2019-08-21] MEDS ORDERED: LORazepam 1 MG TAB PO PRN (11:32)
--- NOTE | 2019-08-21 11:48 | Hospitalist Progress Note ---
Date of Service August 21, 2019 Assessment & Plan (1) IV drug abuse: Drug Overdose -Patient presented to Emergency room on 08/20/2019 with what appears to be drug overdose and drug misuse side effects Initially with elevated body temperature of 100.4 F but acute symptoms appeared to be related to drug overdose rather than an underlying infection although acute bacterial infection cannot be ruled out at this time Symptoms noted between 08/20/2019 to 08/21/2019 were bradycardia on telemetry initi ally in the high 40s to low 50s and gradually trending upwards to the 60s and 70s Nurse also noted that patient has bowel incontinence -On my 08/21/2019 exam and history gathering directly from the patient that she was initially at home prior to hospitalization and was shooting up dope with Fentanyl with IV and that she was overusing Xanax. She then reports that her parole office found drug drug paraphernalia which led to her arrest. Before leaving the premises of her house, she was given permission to take her usual day time dose of Seroquel (100 mg) and gabapentin (which is at home as 300 mg TID). Patient reports that her other home medication is Remeron (mirtazapine) and reports this dose as 15 mg but she did not take this on time of her arrest. Subsequent patiently had nausea and abdominal symptoms. Then as per Emergency room that patient "presents to emergency department from [facility] half-way after having a seizure-like episode when she was in the shower and it was reported that she had spasms of her hands and rigidity in her extremities" -continue IV fluids with potassium supplementation -continue clonidine with plans to taper as this was used before to try to prevent opioid withdrawal -gabapentin will continue as lower than home dose 100 mg TID -place on alcohol withdrawal protocol so there are active benzodiazepine orders in case there is withdrawal symptoms -give banana bag on 08/21/2019 -encourage oral intake, IV anti-emetics as needed for nausea -likely that bowel movement incontinence will resolve over time. likewise will expect that any myoclonic movements should not recur once central nervous system is no longer affected by effects of IV drugs/Fentanyl or excessive benzodiazepines (2) Leukocytosis: Low grade fever present on admission (100.4 F) Dehydration -leukocytosis of 19,000 on admission. trended down to 12,000 as of 08/21/2019. likely due to dehydration. -COVID 19 is ruled out with negative test. Influenza test is negative -less likely that leukocytosis is from an acute bacterial infection and elevated body temperature could have been effects of drug overdose. But since patient uses IV drugs, will continue empiric antibiotics of Zosyn and await blood cultures. admission UA with no bacteria Mood disorder -continue home dose seroquel 50 mg daily and Remeron (mirtazapine) 5 mg qhs DVT prophylaxis: SCDs Admission and Anticipated Discharge Date Admission Date: August 21, 2019 Subjective Patient presented to Emergency room on 08/20/2019 with what appears to be drug overdose and drug misuse side effects Initially with elevated body temperature of 100.4 but acute symptoms appeared to be related to drug overdose rather than an underlying infection although acute bacterial infection cannot be ruled out at this time Symptoms noted between 08/20/2019 to 08/21/2019 were bradycardia on telemetry initially in the high 40s to low 50s and gradually trending upwards to the 60s and 70s Nurse also noted that patient has bowel incontinence -On my 08/21/2019 exam and history gathering directly from the patient that she was initially at home prior to hospitalization and was shooting up dope with Fentanyl with IV and that she was overusing Xanax. She then reports that her parole office found drug drug paraphernalia which led to her arrest. Before leaving the premises of her house, she was given permission to take her usual day time dose of Seroquel (100 mg) and gabapentin (which is at home as 300 mg TID). Patient reports that her other home medication is Remeron (mirtazapine) and reports this dose as 15 mg but she did not take this on time of her arrest. Subsequent patiently had nausea and abdominal symptoms. Then as per Emergency room that patient "presents to emergency department from [facility] after having a seizure-like episode when she was in the shower and it was repo rted that she had spasms of her hands and rigidity in her extremities" On exam. patient awake and alert and cooperative. she appears to have full control of her body movements and no spasms. She did have brief mild fluttering of her eyelids but generally normal eye movements. she is speaking in full sentences on cooperative but appears tired. she reports still some abdomen discomfort but no acute distress. breathing on room air. no tachycardia. no chest pain. no palpitations Review of Systems Review of Systems: All systems reviewed & are unremarkable except as noted in Subjective Physical Exam Constitutional: cooperative Eyes: PERRL, conjunctivae normal, anicteric sclerae EOM intact bilaterally ENMT: external ear and nose normal, oropharynx normal Neck: normal visual inspection Respiratory: normal respiratory effort Cardiovascular: Rate/Rhythm: regular rhythm and + bradycardic Gastrointestinal (Abdomen): Inspection/Auscultation: normal bowel sounds Musculoskeletal: Head/Neck/Chest: normocephalic Neurologic: PERRL, EOMI, accommodation nl, no face palsy, no dysarthria Results & Data Results & Data ([facility]) Vital Signs (Past 12 Hours) Vital Signs Temp Pulse Pulse Pulse Resp BP BP 08/21/19 11:40 37.4 C 63 16 123/81 08/21/19 08:19 70 08/21/19 08:14 37.4 C 69 16 122/69 08/21/19 02:50 37.6 C H 84 18 107/70 08/21/19 02:33 78 14 107/65 08/21/19 02:03 95 H 16 119/63 Pulse Ox 08/21/19 11:40 97 08/21/19 08:19 08/21/19 08:14 97 08/21/19 02:50 97 08/21/19 02:33 98 08/21/19 02:03 94 (1) Leukocytosis Leukocytosis type: unspecified Qualified Code(s): D72.829 - Elevated white blood cell count, unspecified
[2019-08-21] MEDS ORDERED: MULTI-VITAMIN INFUSION 10 ML, THIAMINE HCL 100 MG, FOLIC ACID 1 MG in SODIUM CHLORIDE 0... IV ONE (12:00)
[2019-08-21] MEDS: PIPERACILLIN/TAZOBACTAM 3.375 GM in DEXTROSE 5% 100 ML IV SCH ×2 (12:03→21:09)
--- NOTE | 2019-08-21 14:59 | Electrocardiogram Report ---
Test Reason : Blood Pressure : / mmHG Vent. Rate : 085 BPM Atrial Rate : 085 BPM P-R Int : 122 ms QRS Dur : 086 ms QT Int : 480 ms P-R-T Axes : 074 073 069 degrees QTc Int : 571 ms Poor data quality, interpretation may be adversely affected Normal sinus rhythm with sinus arrhythmia Possible Left atrial enlargement T wave abnormality, consider inferior ischemia Prolonged QT Abnormal ECG No previous ECGs available Confirmed by Benson Santillan ([id number]) on 08/21/2019 2:59:33 PM Referred By: [facility] Confirmed By:Benson Santillan
--- NOTE | 2019-08-21 15:04 | Electrocardiogram Report ---
Test Reason : Blood Pressure : / mmHG Vent. Rate : 084 BPM Atrial Rate : 084 BPM P-R Int : 134 ms QRS Dur : 076 ms QT Int : 372 ms P-R-T Axes : 074 072 060 degrees QTc Int : 439 ms Normal sinus rhythm Abnormal ECG When compared with ECG of 20-AUG-2019 18:36, (unconfirmed) Nonspecific T wave abnormality has replaced inverted T waves in Lateral leads QT has shortened Confirmed by Benson Santillan ([id number]) on 08/21/2019 3:04:01 PM Referred By: [facility] Confirmed By:Benson Santillan
--- NOTE | 2019-08-21 15:09 | Electrocardiogram Report ---
Test Reason : Blood Pressure : / mmHG Vent. Rate : 080 BPM Atrial Rate : 080 BPM P-R Int : 132 ms QRS Dur : 078 ms QT Int : 380 ms P-R-T Axes : 060 052 064 degrees QTc Int : 438 ms Normal sinus rhythm T wave abnormality, consider anterior ischemia Abnormal ECG When compared with ECG of 20-AUG-2019 21:37, (unconfirmed) Nonspecific T wave abnormality, improved in Inferior leads Confirmed by Benson Santillan ([id number]) on 08/21/2019 3:09:05 PM Referred By: [facility] Confirmed By:Benson Santillan
[2019-08-21] MEDS: SODIUM CHLORIDE 0.9% 1000ML 1,000 ML IV SCH (16:27)
[2019-08-21] MEDS ORDERED: clonazePAM 0.5 MG TAB PO SCH (21:00)
[2019-08-21] MEDS ORDERED: MIRTAZAPINE TAB 15 MG TAB PO SCH (21:00)
[2019-08-21] MEDS: cloNIDine HCL 0.1 MG TAB PO SCH (21:10)
[2019-08-21] MEDS: ONDANSETRON INJ 2 MG/ML 2 ML VIAL IV PRN (21:15)
[2019-08-22] MEDS: ONDANSETRON INJ 2 MG/ML 2 ML VIAL IV PRN (03:15)
[2019-08-22] MEDS: PIPERACILLIN/TAZOBACTAM 3.375 GM in DEXTROSE 5% 100 ML IV SCH ×2 (03:16→13:07)
[2019-08-22] MEDS: LORazepam 1 MG/2 ML VIAL IV PRN ×3 (03:16→13:07)
[2019-08-22] MEDS: SODIUM CHLORIDE 0.9% 1000ML 1,000 ML IV SCH (03:32)
[2019-08-22] MEDS ORDERED: clonazePAM 0.25 MG TAB PO STA ×3 (03:55→16:04)
[2019-08-22] MEDS ORDERED: clonazePAM 0.5 MG TAB PO STA (04:21)
[2019-08-22] MEDS: GABAPENTIN 100 MG CAP PO SCH ×2 (07:55→13:11)
[2019-08-22] MEDS: cloNIDine HCL 0.1 MG TAB PO SCH (07:55)
[2019-08-22 08:49] LABS: Hematocrit (blood only) 38.2 % (37-47); Hemoglobin 13.2 g/dL (12.0-16.0); Mean Corpuscular Hemoglobin 30.6 pg (25-34); Mean Corpuscular Hgb Conc 34.6 g/dL (32-36); Mean Corpuscular Volume 88.6 fL (80-100); Mean Platelet Volume 10.1 fL (7.4-10.4); Platelet Count 247 K/uL (130-400); RDW Coefficient of Variation 12.7 % (11.5-14.5); RDW Standard Deviation 40.8 fL (36.4-46.3); Red Blood Count 4.31 M/uL (4.2-5.4); White Blood Count 11.05 K/uL (4.8-10.8)
[2019-08-22] MEDS ORDERED: clonazePAM 0.25 MG TAB PO ONE (08:56)
--- NOTE | 2019-08-22 09:21 | Hospitalist Progress Note ---
Date of Service August 22, 2019 Assessment & Plan (1) IV drug abuse: Drug Overdose -Patient presented to Emergency room on 08/20/2019 with what appears to be drug overdose and drug misuse side effects Initially with elevated body temperature of 100.4 F but acute symptoms appeared to be related to drug overdose rather than an underlying infection although acute bacterial infection cannot be ruled out at this time Symptoms noted between 08/20/2019 to 08/21/2019 were bradycardia on telemetry initi ally in the high 40s to low 50s and gradually trending upwards to the 60s and 70s Nurse also noted that patient has bowel incontinence -On my 08/21/2019 exam and history gathering directly from the patient that she was initially at home prior to hospitalization and was shooting up dope with Fentanyl with IV and that she was overusing Xanax. She then reports that her parole office found drug drug paraphernalia which led to her arrest. Before leaving the premises of her house, she was given permission to take her usual day time dose of Seroquel (100 mg) and gabapentin (which is at home as 300 mg TID). Patient reports that her other home medication is Remeron (mirtazapine) and reports this dose as 15 mg but she did not take this on time of her arrest. Subsequent patiently had nausea and abdominal symptoms. Then as per Emergency room that patient "presents to emergency department from [facility] long-term after having a seizure-like episode when she was in the shower and it was reported that she had spasms of her hands and rigidity in her extremities" -was placed on alcohol withdrawal protocol so there are active benzodiazepine orders in case there is withdrawal symptoms -given banana bag on 08/21/2019 -continue clonidine with plans to taper as this was used before to try to prevent opioid withdrawal -gabapentin continued as lower than home dose 100 mg TID -encourage oral intake, IV anti-emetics as needed for nausea -will expect that any myoclonic movements should not recur once central nervous system is no longer affected by effects of IV drugs/Fentanyl or excessive benzodiazepines, monitor when GI symptoms improves after more time from initial overdoses from home -08/22/2019 exam: Patient seen and examined at bedside. She is laying on the bed and a bucket near her in case she vomits. She reports she has been able to eat some food but not always keeping it down. she reports she continues to have bowel movement incontinence. no chest pain. no shortness of breath. no headache. Patient afebrile. Patient's nurse and correctional officers did not report of patient having any unusual body spams. Telemetry generally in the 50s -Patient encouraged to participate with PT/OT despite continued malaise and GI symptoms Hypokalemia -serum potassium 3.1 on 08/21/2019, potassium supplements was given, check lab and replete as needed to targe serum potassium between 3.5 to 4 Bradycardia -unclear of patient's cardiac heart rates as outpatient, patient does have bradycardia which could be a transient situation from drug use at home, or perhaps this is patient's baseline as a young adult (2) Leukocytosis: Low grade fever present on admission (100.4 F) Dehydration -leukocytosis of 19,000 on admission. trended down to 12,000 as of 08/21/2019. leukocytosis likely due to dehydration. -COVID 19 is ruled out with negative test. Influenza test is negative -less likely that leukocytosis is from an acute bacterial infection and elevated body temperature could have been effects of drug overdose. But since patient uses IV drugs, will continue empiric antibiotics of Zosyn and await blood cultures. admission UA with no bacteria -WBC downtrending to 11,000 on 08/22/2019. blood culture no growth to date so far. continue Zosyn for now. Mood disorder -continue home dose seroquel 50 mg daily and Remeron (mirtazapine) 5 mg qhs DVT prophylaxis: SCDs Admission and Anticipated Discharge Date Admission Date: August 21, 2019 Subjective Patient seen and examined at bedside. She is laying on the bed and a bucket near her in case she vomits. She reports she has been able to eat some food but not always keeping it down. she reports she continues to have bowel movement incontinence. no chest pain. no shortness of breath. no headache. Patient's nurse and correctional officers did not report of patient having any unusual body spams. Review of Systems Review of Systems: All systems reviewed & are unremarkable except as noted in Subjective Physical Exam Constitutional: cooperative Eyes: PERRL, conjunctivae normal, anicteric sclerae EOM intact bilaterally ENMT: external ear and nose normal, oropharynx normal Neck: normal visual inspection Respiratory: normal respiratory effort Cardiovascular: Rate/Rhythm: regular rhythm and + bradycardic Gastrointestinal (Abdomen): Inspection/Auscultation: normal bowel sounds Musculoskeletal: Head/Neck/Chest: normocephalic Neurologic: PERRL, EOMI, accommodation nl, no face palsy, no dysarthria Psychiatric: A+Ox3, euthymic affect Results & Data Results & Data ([facility]) Vital Signs (Past 12 Hours) Vital Signs Temp Pulse Pulse Pulse Resp BP BP 08/22/19 09:15 55 L 08/22/19 07:18 37.6 C H 49 L 16 121/78 08/22/19 03:17 36.8 C 57 L 18 119/72 08/22/19 02:34 72 08/21/19 23:32 37.0 C 52 L 15 104/54 L Pulse Ox 08/22/19 09:15 08/22/19 07:18 99 08/22/19 03:17 96 08/22/19 02:34 08/21/19 23:32 96 (1) Leukocytosis Leukocytosis type: unspecified Qualified Code(s): D72.829 - Elevated white blood cell count, unspecified
[2019-08-22 09:22] LABS: Albumin Level 3.4 gm/dl (3.4-5.0); BUN Creatinine Ratio 19.4 (10-20); Calcium 8.8 mg/dl (8.5-10.1); Creatinine Clr Calc Pharmacy 91.6 ml/min; Est GFR (African American) 130.8; Est GFR (Non-African American) 112.9; Magnesium 2.3 mg/dl (1.8-2.4); Potassium 3.3 mmol/L (3.5-5.1)
[2019-08-22 09:32] LABS: Globulin 3.4 gm/dl (2.5-4.0); Total Protein 6.8 gm/dl (6.4-8.2)
[2019-08-22] MEDS: POTASSIUM CHLORIDE / WTR 10 MEQ/100 ML PLCT IV SCH ×2 (10:54→11:52)
[2019-08-22] MEDS ORDERED: clonazePAM 0.5 MG TAB PO ONE (16:11)
[2019-08-22] MEDS ORDERED: ONDANSETRON 4 MG OD TAB PO PRN (16:28)
--- NOTE | 2019-08-22 16:47 | Discharge Summary ---
Date of Service August 22, 2019 Admission HPI Per Admitting Provider DATE OF ADMISSION: 08/21/2019 CHIEF COMPLAINT: Questionable seizures, heroin withdrawal, fever. HISTORY OF PRESENT ILLNESS: This is a 29-year-old female with no significant past medical history, who was brought in from group home because of questionable seizure-like activity. The patient was admitted to group home yesterday night and since 08/20/2019 morning she has been sick with, abdominal cramps, nausea, vomiting, several episodes of diarrhea. No history of seizure. As per the ER, when she was in shower she reported that she had spasms and rigidity in her extremities, somewhat decreased consciousness, but no loss of consciousness and 1 mg of IM Ativan was given and subsequently transferred to the Emergency Department. The patient has been managed in the group home opioid withdrawal with clonidine. CT head was negative. Here her labs showed leukocytosis of 19 and hemoglobin of 18, which looks like hemoconcentrated from dehydration with potassium of 3.2. Lactate was 2. Urinalysis was positive for trace leukocyte esterase and +3 ketones, possibly dehydration and starvation ketosis. Urine toxicology screen was positive for opiates and marijuana. Chest x-ray was okay. EKG shows prolonged QT of [address]-T wave abnormalities. Initial plan was to treat with fluids and send her back to group home for heroin withdrawal, but then later the patient spiked temperature and as the group home has few cases of COVID, flu and COVID test was drawn in the ER, but those tests are still pending and there is question of infection and was started on Zosyn and vancomycin and planned to be admitted in the hospital for further monitoring . The patient is somewhat drowsy, but obeys simple commands and answers questions. She is in position. Complains of abdominal cramps and also several episodes of diarrhea. She says she is not feeling good. Denies any cough, no chest pain. Says that she is somewhat short of breath, has some headache. When asked about neck pain, she says she has some neck pain, but she is able to move her neck, though she is drowsy and is somewhat difficult to evaluate at this time, but no obvious meningeal signs noted. She says she was taking IV heroin every day since last 1-1/2 months until admitted to group home.. She says she lives alone. Denies any sick contacts. Denies any travel to [facility]. She says she is not feeling good since yesterday. Currently hemodynamically stable, saturating 100% on room air. The patient states she takes Seroquel 100 mg and gabapentin 100 mg t.i.d. and requests for her home medications. Principal Diagnosis IV drug abuse / Drug Overdose, Hypokalemia, Bradycardia, Leukocytosis, Low grade fever present on admission (100.4 F), Dehydration, Mood disorder Discharge Exam Constitutional cooperative Eyes PERRL, conjunctivae normal, anicteric sclerae EOM intact bilaterally ENMT external ear and nose normal, oropharynx normal Neck normal visual inspection Respiratory normal respiratory effort Cardiovascular Rate/Rhythm: regular rhythm and + bradycardic Gastrointestinal (Abdomen) Inspection/Auscultation: normal bowel sounds Musculoskeletal Head/Neck/Chest: normocephalic Neurologic PERRL, EOMI, accommodation nl, no face palsy, no dysarthria Psychiatric A+Ox3, euthymic affect Discharge Data Allergies Allergy/AdvReac Type Severity Reaction Status Date / Time No Known Allergies Allergy Verified 08/20/19 18:52 Consultations 08/20/19 23:54 ED Decision to Admit Stat 08/21/19 03:13 Consult Case Management - Discharge Planning Routine 08/22/19 07:06 Consult Case Management - Discharge Planning Routine Ordered Studies 08/20/19 18:13 CT head/brain wo con Stat Hospital Course (1) IV drug abuse: Drug Overdose -Patient presented to Emergency room on 08/20/2019 with what appears to be drug overdose and drug misuse side effects Initially with elevated body temperature of 100.4 F but acute symptoms appeared to be related to drug overdose rather than an underlying infection although acute bacterial infection cannot be ruled out at this time Symptoms noted between 08/20/2019 to 08/21/2019 were bradycardia on telemetry initially in the high 40s to low 50s and gradually trending upwards to the 60s and 70s Nurse also noted that patient has bowel incontinence -On my 08/21/2019 exam and history gathering directly from the patient that she was initially at home prior to hospitalization and was shooting up dope with Fentanyl with IV and that she was overusing Xanax. She then reports that her parole office found drug drug paraphernalia which led to her arrest. Before leaving the premises of her house, she was given permission to take her usual day time dose of Seroquel (100 mg) and gabapentin (which is at home as 300 mg TID). Patient reports that her other home medication is Remeron (mirtazapine) and reports this dose as 15 mg but she did not take this on time of her arrest. Subsequent patiently had nausea and abdominal symptoms. Then as per Emergency room that patient "presents to emergency department from [facility] after having a seizure-like episode when she was in the shower and it was repo rted that she had spasms of her hands and rigidity in her extremities" -was placed on alcohol withdrawal protocol so there are active benzodiazepine (ativan) orders in case there is withdrawal symptoms -given banana bag on 08/21/2019 -gabapentin continued as lower than home dose 100 mg TID and then clonidine as 0.1 mg BID while inpatient -myoclonic movements should not recur as central nervous system no longer affected by effects of IV drugs/Fentanyl or excessive benzodiazepines, GI symptoms related to history of drug misuse and likely from 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 Prescription made. Patient should by seen by outpatient physician to consider whether clonidine should still be needed to prevent narcotic drug withdrawal Hypokalemia -serum potassium 3.1 on 08/21/2019, potassium supplements was given, check lab and replete as needed to targe serum potassium between 3.5 to 4 -Discharge medication of potassium 20 meq daily for 5 days. Patient will need comprehensive metabolic panel and CBC checked by an outpatient physician in 1 week -Patient may take loperamide every 6 hours as needed for loose stool (diarrhea)) Bradycardia -unclear of patient's cardiac heart rates as outpatient, patient does have bradycardia which could be a transient situation from drug use at home, or perhaps this is patient's baseline as a young adult (2) Leukocytosis: Low grade fever present on admission (100.4 F) Dehydration -leukocytosis of 19,000 on admission. trended down to 12,000 as of 08/21/2019. leukocytosis likely due to dehydration. -COVID 19 is ruled out with negative test. Influenza test is negative -less likely that leukocytosis is from an acute bacterial infection and elevated body temperature could have been effects of drug overdose. But since patient uses IV drugs, will continue empiric antibiotics of Zosyn and await blood cultures. admission UA with no bacteria -WBC downtrending to 11,000 on 08/22/2019. blood culture no growth to date so far and Zosyn stopped Mood disorder -continue home dose seroquel 50 mg daily and Remeron (mirtazapine) 15 mg qhs (Discharge recommendations to continue home dose quetiapine as 50 mg daily Renewed home prescription fo Mirtazapine (Remeron) as 15 mg qHS) -Patient should be on reduced gabapentin as 100 mg TID (prescription provided) to avoid hypotension or syncope instead of the home dose of gabapentin 300 mg TID Discharge Plans -08/22/2019 exam: Patient seen and examined at bedside. She is laying on the bed and a bucket near her in case she vomits. She reports she has been able to eat some food but not always keeping it down. she reports she continues to have bowel movement incontinence. no chest pain. no shortness of breath. no headache. Patient afebrile. Patient's nurse and correctional officers did not report of patient having any unusual body spams. Telemetry generally in the 50s Patient feeling better and requests hospital discharge, Patient is discharged to correctional facility ([facility]) Total Time Total Time Spent Total Time Spent (In Minutes): 40 minutes Total Time Includes: Examination of the Patient, Discharge Planning, Medication Reconciliation and Communication With Other Providers Discharge Plan Discharge Items Patient Disposition: Correctional Facility Reason For Visit: SEIZURE Discharge Diagnosis: IV drug abuse / Drug Overdose, Hypokalemia, Bradycardia, Leukocytosis, Low grade fever present on admission (100.4 F), Dehydration, Mood disorder Condition on Discharge: Fair Activity: Per Instructions section Non-emergency contact: Primary Care Provider Call non-emergency contact if: you have any medication questions Follow-up/Referrals: [facility] [Primary Care Provider] - Diet: Regular Addtl Attending Provider Instructions: Patient is discharged to correctional facility ([facility]) Discharge medication of potassium 20 meq daily for 5 days. Patient will need comprehensive metabolic panel and CBC checked by an outpatient physician in 1 week Discharge recommendations to continue home dose quetiapine as 50 mg daily Renewed home prescription fo Mirtazapine (Remeron) as 15 mg qHS Patient should be on reduced gabapentin as 100 mg TID (prescription provided) to avoid hypotension or syncope instead of the home dose of gabapentin 300 mg TID Patient may continue clonazepam as 1.5 mg BID and 0.5 qhs for 4 day prescription for now and should be seen by outpatient physician to consider whether this dose should be renewed or tapered Patient may continue clonidine as 0.1 mg BID for 2 days then 0.1 mg daily for 2 days then stop. Prescription made. Patient should by seen by outpatient physician to consider whether clonidine should still be needed to prevent narcotic drug withdrawal Patient may take loperamide every 6 hours as needed for loose stool (diarrhea) Pending Studies at Discharge: No Stand-Alone Forms: My [facility] Skilled Items Patient informed of condition?: Yes Discharge Level of Care: Other Communicable Disease: No Discharge Prognosis: Stable Lines: None Urinary Catheter: No Medications and DC Order Prescriptions: New mirtazapine 15 mg Tablet 15 mg PO HS 30 Days Qty: 30 RF: 0 gabapentin 100 mg Capsule 100 mg PO TID 30 Days Qty: 90 RF: 0 clonazepam 0.5 mg tablet 0.5 mg PO HS 4 Days Qty: 4 RF: 0 clonazepam 1 mg tablet 1.5 mg PO BID 4 Days Qty: 12 RF: 0 ondansetron 4 mg Tablet,Disintegrating 4 mg PO Q6H PRN (Reason: nausea and vomiting) 4 Days Qty: 24 RF: 0 clonidine HCl 0.1 mg Tablet 0.1 mg PO UD 4 Days Qty: 4 RF: 0 loperamide 2 mg tablet 2 mg PO Q6H PRN (Reason: loose stool) 4 Days Qty: 16 RF: 0 Continued bismuth subsalicylate [Pepto-Bismol] 262 mg/15 mL Suspension 524 mg PO BID PRN (Reason: Gi Upset) RF: 0 quetiapine 50 mg tablet 50 mg PO DAILY RF: 0 mirtazapine 15 mg PO HS RF: 0 Discontinued clonidine HCl 0.1 mg Tablet 0.1 mg PO TID RF: 0 ondansetron HCl [Zofran] 4 mg Tablet 4 mg PO TID PRN (Reason: Nausea) RF: 0 clonazepam 0.5 mg Tablet 0.5 mg PO HS RF: 0 clonazepam 0.5 mg Tablet 0.5 mg PO BID RF: 0 clonazepam 1 mg Tablet 1 mg PO BID RF: 0 gabapentin 300 mg capsule 300 mg PO TID RF: 0 Discharge Orders: Discharge Order (Routine); Ordered 08/22/19 Ordered By: Margarito Landis Admission Data Admit Date/Time: 08/21/19 01:18 Attending Provider: Margarito Landis Admit Provider: Andi Coffey Primary Care Provider: [facility] Other Providers: Andi Coffey Other Interventions: Discharge Summary Assessment (RN) Last Done: 08/22/19 16:39
[2019-08-23 15:14] LABS: Codeine Urine NEGATIVE ng/mL (<50); Hydrocodone Urine NEGATIVE ng/mL (<50); Hydromor Urine 62 ng/mL (<50); Marijuana Quant, GCMS Urine 30 ng/mL (<5); Morphine Urine 2890 ng/mL (<50); Norhydrocodone Conf Ur NEGATIVE ng/mL (<50); Noroxycodone Urine NEGATIVE ng/mL (<50); Oxycodone Urine NEGATIVE ng/mL (<50); Oxymorph Urine NEGATIVE ng/mL (<50)
== END 2019-08-22 17:17 | DRG 897 ==
LOC: ED 17:59 → INTOOBSV 08-21 01:18 → 2S 08-21 01:18 → SUATTDRO 08-21 01:18 → 2S 08-21 02:33 → 2N 08-21 13:20